=== PATIENT | male | born 2005 | race Two or more races ===

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

== ENCOUNTER 2023-05-21 18:43 | Emergency (ER) | payer MEDICAID, SELFPAY ==
[2023-05-21 19:01] VITALS: BP 145/93; PULSE 94; RESP 16; TEMP 36.8; O2SAT 98; BMI 38.4
--- NOTE | 2023-05-21 19:04 | ED_ITS ---
HPI - Wound/Laceration General Chief Complaint: Wound/Laceration Stated Complaint: cut left hand Time Seen by Provider: 05/21/23 19:56 Source: patient Mode of arrival: ambulatory Limitations: no limitations History of Present Illness HPI narrative: 17-year-old male [id number] here with complaints of laceration to the left hand which occurred while using work night. Patient reports he was trying to cut a zip tie when his hand slipped causing a laceration to the left hand. He tells me his tetanus shot is up-to-date. He denies any associated weakness, numbness or tingling of the extremity. Related Data Previous Rx's Medication Instructions Recorded diphenhydramine HCl 25 mg capsule 25 mg PO Q8H 5 days #15 caps 03/15/22 (Benadryl) famotidine 20 mg tablet (Pepcid) 20 mg PO BID 5 days #10 tabs 03/15/22 prednisone 20 mg tablet 40 mg (2 x 20 mg) PO DAILY #10 tabs 03/15/22 Allergies Allergy/AdvReac Type Severity Reaction Status Date / Time aspirin [ASPIRIN] Allergy Unknown THROMBOCYTO Verified 05/21/23 19:04 PENIA Review of Systems 2 Review of Systems: Yes all other systems are reviewed and are negative Constitutional: Constitutional: Reports no additional constitutional complaints, Denies body ache(s), Denies chills, Denies fever(s), Denies headache(s) and Denies weakness Eyes: Eyes: Reports no additional eye complaints and Denies change in vision ENT: Reports system reviewed and no additional complaints, except as documented, Denies dizziness, Denies headache(s), Denies nasal congestion, Denies nasal discharge and Denies neck pain Cardiovascular: Cardiovascular: Reports no additional cardiovascular complaints, Denies chest pain, Denies leg edema and Denies dyspnea Respiratory: Respiratory: Reports no additional respiratory complaints, Denies cough and Denies dyspnea Gastrointestinal: Gastrointestinal: Reports no additional gastrointestinal complaints, Denies abdominal pain, Denies diarrhea, Denies nausea and Denies vomiting Genitourinary: Genitourinary: Denies urinary incontinence Musculoskeletal: Musculoskeletal: Reports no additional musculoskeletal complaints, Denies back pain, Denies arthralgias, Denies joint swelling, Denies neck pain, Denies numbness and Denies tingling Integumentary/Breasts: Skin/Breast: Reports system reviewed and no additional complaints, except as docu, Denies rash and Reports wounds Neurologic: Reports system reviewed and no additional complaints, except as documented, Denies Abnormal speech present, Denies dizziness, Denies headache(s), Denies numbness, Denies tingling and Denies weakness PMFSH Past Medical History Attestation statement: The following information was validated with the patient. Source: old records reviewed and nursing notes reviewed Medical History Asthma Thrombocytopenia Social History Alcohol intake: never Patient Tobacco Use Status: Never used Tobacco Smoked in Last 30 Days: No Physical Exam 2 Vital Signs: Vital Signs: Last Vital Signs Temp 98.3 F 05/21/23 19:01 Pulse 94 05/21/23 19:01 Resp 16 05/21/23 19:01 BP 145/93 H 05/21/23 19:01 Pulse Ox 98 05/21/23 19:01 O2 Del Method Room Air 05/21/23 19:01 BMI result Body Mass Index 38.4 Const: General: cooperative, healthy appearing, comfortable and no acute distress Orientation/consciousness: patient oriented x3 Limitations: no limitations HEENT: Head: Yes normal to inspection Ears: hearing grossly normal bilaterally General nose exam: Normal external nose present Face and sinus: Yes normal facial exam Mouth: Normal oral and palatal mucosa present Throat: Yes posterior oropharynx normal Eyes: General: appearance normal, both eyes and all related structures P upils: Equal, round and reactive pupils present Neck: Neck: Yes normal visual inspection Chest: Chest palpation & inspection: normal inspection of the chest Resp: Effort & Inspection: normal respiratory effort Auscultation: clear to auscultation bilaterally Cardio: Rate: regular rate Rhythm: regular rhythm Peripheral pulses: P eripheral pulses 2+ throughout GI: Inspection: Yes normal to inspection Palpation (GI): Soft to palpation and nontender Auscultation: normal bowel sounds Back/Spine/Pelvis: Thoracic/Lumbar Spine: thoracic and lumbar spine normal to inspection Skin: General skin exam: no rashes or lesions noted Neuro: General: patient oriented x3, no focal motor deficits and normal sensation to monofilament Cranial nerves: Yes Equal, round and reactive pupils present Cognition (Neuro): normal cognition Speech: No Abnormal speech present Gait exam (Neuro): Normal gait present Motor exam (neuro): 5/5 motor strength present throughout Extrem: General: Yes normal to inspection Hand/finger images: 1. 2cm laceration-Bleeding controlled. Normal CMS Course Course Course Narrative: This is a rapid medical exam. deferred additional HPI, ROS, PE to primary provider. 17 yo male with history of thrombocytopenia (last count here 145k), right hand dominant here with laceration to left hand from knife. ?sutures needed. FROM of hand. Tetanus UTD VSS Medical Decision Making Medical Decision Making MDM Narrative: 17-year-old male [id number] here with complaints of laceration to the left hand which occurred while using work night. Patient reports he was trying to cut a zip tie when his hand slipped causing a laceration to the left hand. He tells me his tetanus shot is up-to-date. He denies any associated weakness, numbness or tingling of the extremity. Over the left hand there is a laceration present which is approximately 2 cm. Bleeding is controlled. CMS is normal around the affected extremity. See procedure note for wound closure. Differential Diagnosis Differential Diagnoses: The differential diagnosis associated with the presentation includes Laceration Low concern for tendon injury/bony abnormality/Fb with full range of motion Tests considered The following testing was considered but not selected: No need for x-ray with no concern for FB, bony abnormality Prescription Management I considered prescription management with: Pain Medication Procedures Laceration Laceration 1: Site: hand Side (If applicable): left Size (cm): 2 Description: linear Depth: simple, single layer Pre-repair: wound explored and irrigated extensively (NS/betadine) Skin layer closed with: other (skin glue/steri strips) Discharge Plan Discharge Clinical Impression: Laceration Patient Disposition: Home, Self-Care Instructions: Laceration (ED) Additional Instructions: Leave the steri strips on for 5 days. If they fall off before then its okay. Try to keep the wound clean, covered and dry Prescriptions: No Action prednisone 20 mg tablet 40 mg PO DAILY Qty: 10 0RF famotidine [Pepcid] 20 mg tablet 20 mg PO BID 5 Days Qty: 10 0RF diphenhydramine HCl [Benadryl] 25 mg capsule 25 mg PO Q8H 5 Days Qty: 15 0RF Referrals: Cristela Garcia DO [Primary Care Provider] - 1 week
--- NOTE | 2023-05-21 19:47 | PC.NURSE ---
wound soaked in sterile water and betadine
== END 2023-05-21 20:14 | disposition home or self-care (01) ==
LOC: HO.ED 20:10
PROVIDERS: Emergency Provider Emergency Medicine; PCP Pediatrics
DX: S61.012A Laceration without foreign body of left thumb without damage to nail, initial encounter (principal); W26.0XXA Contact with knife, initial encounter; Y93.89 Activity, other specified; Y92.9 Unspecified place or not applicable; Y99.0 Civilian activity done for income or pay; J45.909 Unspecified asthma, uncomplicated
CPT/HCPCS: 99283

== ENCOUNTER 2023-08-14 13:31 | Emergency (ER) | payer MEDICAID, SELFPAY | END 2023-08-14 14:49 | disposition left against medical advice (07) | PROVIDERS: Emergency Provider Emergency Medicine | DX: F41.9 Anxiety disorder, unspecified (principal) ==

== ENCOUNTER 2023-08-14 14:34 | Emergency (ER) | payer SELFPAY ==
[2023-08-14 14:51] VITALS: BP 144/86; BP 155/70; PULSE 79; PULSE 91; RESP 18; TEMP 36.7; O2SAT 100; O2SAT 98; BMI 40.7
[2023-08-14 16:58] LABS: Appearance Urine Clear; Color Urine Yellow; Glucose Urine UA Negative (Negative); Leukocyte Esterase Urine Negative (Negative); Nitrite Urine Negative (Negative); PH 6.5 (5.0-9.0); Specific Gravity - Urine 1.025 (1.005-1.025); Urine Blood Negative (Negative); Urine Ketones Negative (Negative); Urine Protein Trace mg/dL (Neg-Trace)
[2023-08-14 17:06] LABS: Amphetamine Screen Urine Not Detected (Not Detect); Barbiturates, Urine Not Detected (Not Detect); Benzodiazepines Screen Urine Not Detected (Not Detect); Cannabinoid Screen Urine Not Detected (Not Detect); Cocaine Screen Urine Not Detected (Not Detect); Fentanyl, urine Not Detected (Not Detect); Opiate Screen Urine Not Detected (Not Detect); Phencyclidine Screen Urine Not Detected (Not Detect)
--- NOTE | 2023-08-14 17:37 | ED_ITS ---
HPI - Psych General Chief Complaint: Psychiatric Symptoms Stated Complaint: SECTION 12 Time Seen by Provider: 08/14/23 14:48 Source: patient Mode of arrival: EMS Limitations: no limitations History of Present Illness HPI Narrative: patient comes to the emergency room by ambulance. Earlier today, patient and his aunt, both of them came to the ED. seems that earlier today they are home /apartment got condemned. patient brought his aunt to the emergency room. What he was here, patient checked in for anxiety. However, patient needed to make arrangements for them to stay at someone else's house. Patient states that he needed to take care of his pets as well. Patient left his aunt in the emergency room waiting to be seen while he decided to make living arrangements. Patient states that he has not SI or HI. When patient arrived to his home to get close for the next few days, the police was waiting for him. Seems that someone from the hospital called the police stating that the patient eloped. They brought him to the emergency room. Patient denies SI or HI. Related Data Previous Rx's Medication Instructions Recorded diphenhydramine HCl 25 mg capsule 25 mg PO Q8H 5 days #15 caps 03/15/22 (Benadryl) famotidine 20 mg tablet (Pepcid) 20 mg PO BID 5 days #10 tabs 03/15/22 prednisone 20 mg tablet 40 mg (2 x 20 mg) PO DAILY #10 tabs 03/15/22 Allergies Allergy/AdvReac Type Severity Reaction Status Date / Time aspirin [ASPIRIN] Allergy Unknown THROMBOCYTO Verified 05/21/23 19:04 PENIA Review of Systems Review of Systems: Constitutional : No Weight loss, No Fever, No Chills, No Night Sweats, No Fatigue, No Malaise ENT/Mouth : No Hearing loss, No Ear Pain, No Nasal Congestion, No Sinus Pain, No Hoarseness, No sore throat, No Rhinorrhea, No Swallowing Difficulty Eyes: No Eye Pain, No Swelling, No Redness, No Foreign Body, No Discharge, No Vision Changes Cardiovascular : No Chest Pain, No SOB, No Dyspnea on Exertion, No Orthopnea, No Edema, No Palpitations Respiratory : No Cough, No Sputum, No Wheezing, No Smoke Exposure, No Dyspnea Gastrointestinal : No Nausea, No Vomiting, No Diarrhea, No Constipation, No abdominal Pain, No Hematochezia, No Melena Genitourinary : no irregular bleeding, No Dysuria, No Urinary Frequency, No Hematuria, No Urinary Incontinence, No Urgency, No Flank Pain, No Urinary Flow Changes, No Hesitancy Musculoskeletal : No joint pain, No Myalgias, No Joint Swelling Skin : No Skin Lesions, No rash Neuro : No Weakness, No Numbness, No Paresthesias, No Loss of Consciousness, No Dizziness, No Headache Psych : Situational anxiety, No Depression, No SI/HI/AH/VH, No Social Issues, Heme/Lymph: No Bruising, No Bleeding,No Lymphadenopathy Endocrine : No Polyuria, No Polydipsia, No Temperature Intolerance PMFSH Past Medical History Medical History Asthma Thrombocytopenia Social History Social History Alcohol intake: never Patient Tobacco Use Status: Never used Tobacco Advance Directives: No Advance Directives Information Provided: No Physical Exam Vital Signs: Vital Signs: Last Vital Signs Temp 98.1 F 08/14/23 14:51 Pulse 79 08/14/23 14:51 Resp 18 08/14/23 14:51 BP 155/70 H 08/14/23 14:51 Pulse Ox 98 08/14/23 14:51 O2 Del Method Room Air 08/14/23 14:51 BMI result Body Mass Index 40.7 Const: Other: Appearance: Alert. Oriented X3. No acute distress. Eyes: Pupils equal, round and reactive to light. ENT: Pharynx normal. Neck: Normal inspection. Neck supple. No lymph nodes noted. No crepitus CVS: Normal heart rate and rhythm. Pulses normal. Normal S1 and S2 Respiratory: No respiratory distress. Breath sounds normal. No Wheezing. No rales Abdomen: Soft and nontender. No rigidity. No distention. Skin: Skin warm and dry. Normal skin color. Normal skin turgor. Extremities: No lower extremity edema. No Lacerations. No Rash Neuro: Oriented X 3. No motor deficit. No sensory deficit. Moving all extremities. No slurred speech. CN 2 through 12 grossly intact Psych: calm, cooperative, normal affect Medical Decision Making Medical Decision Making MDM Narrative: - patient is awake, alert and oriented x3, calm, cooperative - patient states that he is not suicidal or homicidal, patient does not have history of psychiatric illnesses. - When patient arrived, he was Section 12 by police department, stating that the patient was self-harming. Patient states that he was slightly bumping his head against the wall, thinking. Patient Is adamant that he was not hurting himself in any way. Patient states that he is very worried because he does not have a place to leave starting today, and now he has to face his family, and is concerned that they will be very angry at him because he let this happened. - patient has no injuries or wounds that would indicate that he hit his head hard - patient's history is believable. - Patient given the option to wait to be seen by the care team, however patient states that he would prefer to be discharged since he has to take care of his pets and make living arrangements and talk to his family about what happened today. Differential Diagnosis Differential Diagnoses: The differential diagnosis associated with the presentation includes Lab Data Labs: Lab Results 08/14/23 Range/Units 16:38 Urine Color Yellow Urine Appearance Clear Urine pH 6.5 (5.0-9.0) Ur Specific [place] 1.025 (1.005-1.025) Urine Protein Trace (Neg-Trace) mg/dL Urine Glucose (UA) Negative (Negative) mg/dL Urine Ketones Negative (Negative) mg/dL Urine Blood Negative (Negative) Urine Nitrite Negative (Negative) Ur Leukocyte Esterase Negative (Negative) Urine Opiates Screen Not Detected (Not Detect) Urine Fentanyl Screen Not Detected (Not Detect) Ur Barbiturates Screen Not Detected (Not Detect) Ur Phencyclidine Scrn Not Detected (Not Detect) Ur Amphetamines Screen Not Detected (Not Detect) U Benzodiazepines Scrn Not Detected (Not Detect) Urine Cocaine Screen Not Detected (Not Detect) U Marijuana (THC) Screen Not Detected (Not Detect) Discharge Plan Discharge Clinical Impression: Acute anxiety Patient Disposition: Home, Self-Care Instructions: Anxiety (ED) Additional Instructions: Please follow-up with your primary care physician tomorrow. If you have any w orsening or new symptoms, please return to the emergency room or call 911 Prescriptions: No Action prednisone 20 mg tablet 40 mg PO DAILY Qty: 10 0RF famotidine [Pepcid] 20 mg tablet 20 mg PO BID 5 Days Qty: 10 0RF diphenhydramine HCl [Benadryl] 25 mg capsule 25 mg PO Q8H 5 Days Qty: 15 0RF Interventions: [place]-Suicide Risk Severity Scale Last Done: 08/14/23 15:02
== END 2023-08-14 17:44 | disposition home or self-care (01) ==
PROVIDERS: Emergency Provider Emergency Medicine
DX: F41.9 Anxiety disorder, unspecified (principal); Z72.89 Other problems related to lifestyle; Z59.811 Housing instability, housed, with risk of homelessness; Z79.899 Other long term (current) drug therapy
CPT/HCPCS: 80307; 81003; 99284

== ENCOUNTER 2025-05-24 13:43 | Outpatient (REF) | payer SELFPAY ==
--- NOTE | ~2025-05-24 | XR_ITS ---
EXAMINATION: XR CHEST CLINICAL INFORMATION: persistent cough COMPARISON: None available. TECHNIQUE: 2 views of the chest were obtained. FINDINGS: No significant abnormality is noted involving the heart, lungs, mediastinum, bony thorax or soft tissues. XR/XR chest 2V IMPRESSION: Unremarkable examination. Electronically signed by: Carley Us MD 05/24/2025 02:01 PM [facility]
--- OUTSIDE RECORDS SUMMARY | 2025-05-24 13:00 | XMS_ITS | Encounter Summary ---
Author Organization [employer] Address [address] [place] [address] [address] [place] [address] Care Team Providers Care Gear Keeper Name Role Phone Jami Barton [facility] Primary Care Provider [phone] Reason for Visit * Reason Comments Cough Shortness of Breath Encounter Details Date Type Department Care Team ([facility] st Contact Info) Description 05/24/2025 1:00 PM EST Office Visit [facility] [address] [place] [address] DeeD ee Encarnacion MD [address] [place] [address] Exacerbation of asthma, unspecified asthma severity, unspecified whether persistent (Primary Dx); Persistent cough Social History Tobacco Use Types Packs/Day Years Used Date Smoking Tobacco: Never Smokeless Tobacco: Never Tobacco Cessation:Counseling Given: Not Answered Alcohol Use Standard Drinks/Week Comments Never 0 (1 standard drink = 0.6 oz pur e alcohol) Depression Answer Date Recorded Patient Health Questionnaire-9 Score 17 03/19/2024 Patient Health Questionnaire-9 Score 17 03/19/2024 Last PHQ-9: Questionnaire Data Not on file 0 03/19/2024 Housing Stability Answer Date Recorded What is your housing situation today? I have yaneth dinero 03/19/[address] you li ve. Do you have problems with any of the following? None of the above 03/19/2024 Food Insecurity Answer Date Recorded Within the past 12 months, y ou worried that your food would run out before you got money to buy more: Never True 03/19/2024 Within the past 12 months,th e food you bought just didn't last and you didn't have enough money to get more: Never True Transportation Answer Date Recorded In the past 12 months, has l ack of transportation kept you from medical appts, meetings, work or from getting things needed for daily living? No 03/11/2024 Utilities Answer Date Recorded In the past 12 months, has t he electric, gas, oil or water company threatened to shut off services in your home? No 03/19/2024 Depression Answer Date Recorded Patient Health Questionnaire-2 Score 4 03/19/2024 Internet Access Answer Date Recorded Internet Access Q1 Yes 03/11/2024 Internet Access Q2 Not on file 03/11/2024 Sex and Gender Information Value Date Recorded Sex Assigned at Male 04/29/2022 10:22 AM EDT Legal Sex Male 10:22 AM EDT Gender Identity Male 04/29/2022 10:22 AM EDT Sexual Orientation Straight 04/29/2022 10 :22 AM EDT documented as of this encounter Last Filed Vital Signs Vital Sign Reading Time Taken Comments Blood Pressure 138/86 05/24/2025 1:23 PM EST Pulse 90 05/24/2025 1:23 PM EST Temperature 36.6 C (97.8 F) 05/24/2025 1:23 PM EST Respiratory Rate 20 05/24/2025 1:23 PM EST Oxygen Saturation 97% 05/24/2025 1:23 PM EST Inhaled Oxygen Concentration - - Weight 123 kg (270 lb 3.2 oz) 05/24/2025 1:23 PM EST Height 180.3 cm (5' 11 ) 05/24/2025 1:23 PM EST Body Mass Index 37.69 05/24/2025 1:23 PM EST documented in this encounter Progress Notes * Dee Dee Hou MD - 05/24/2025 1:00 PM EST SUBJECTIVE: Byron Chatman is a 19 y.o. year old male who presents for acute visit . Acute Concerns: Patient waas seen here in [facility] about a week ago he was diagnose with asthma exacerbation and it was prescribed albuterol and Symbicort, he reports his symptoms got worse, reports SOB, chest tightness,cough with clear sputum and wheezing at night, he has not being able to sleep, reports spells of cough Social History Social History Narrative Not on file Problem List[1] ADHD Major depression Anxiety Mild persistent asthma Allergic rhinitis Body mass index, pediatric, greater than or equal to 95th percentile for age Asthma exacerbation Persistent cough Family History[2] Review of Systems Constitutional: Positive for diaphoresis and fatigue. HENT: Positive for congestion and sore throat. Negative for dental problem, drooling, ear discharge, ear pain, facial swelling, hearing loss, mouth sores, nosebleeds, postnasal drip, rhinorrhea, sinus pressure, sinus pain, sneezing, tinnitus, trouble swallowing and voice change. Respiratory: Positive for cough, chest tightness, shortness of breath and wheezing. Negative for apnea, choking and stridor. Cardiovascular: Negative. OBJECTIVE: Vitals: 05/24/25 1323 BP: 138/86 BP Location: Right arm Patient Position: Sitting BP Cuff Size: Large adult Pulse: 90 Resp: 20 Temp: 97.8 ??F (36.6 ??C) TempSrc: Oral SpO2: 97% Weight: 270 lb 3.2 oz (123 kg) Height: 5' 11 (1.803 m) Physical Exam Constitutional: Appearance: He is diaphoretic. Cardiovascular: Rate and Rhythm: Normal rate and regular rhythm. Pulmonary: Effort: Pulmonary effort is normal. Breath sounds: Wheezing present. Musculoskeletal: Right lower leg: No edema. Left lower leg: No edema. Neurological: Mental Status: He is alert. Follow Up: No follow-ups on file. Medications Ordered Prior to Encounter[3] Problem List Items Addressed This Visit Asthma exacerbation - Primary Patient educated to avoid triggers I advise to c/w albuterol inhaler 2 puff every 4-6hrs I prescribed prednisone 60mg daily for 5 days If symptoms persist or worse it was advise to go to emergency room Chest x-ray ordered today Relevant Medications predniSONE (Deltasone) 20 MG tablet Persistent cough Relevant Medications predniSONE (Deltasone) 20 MG tablet Other Relevant Orders Influenza A (ID NOW Rapid Molecular) (Completed) Influenza B (ID NOW Rapid Molecular) (Completed) POCT Rapid COVID Ag (Completed) XR Chest 2 Views (Completed) [1] Patient Active Problem List Diagnosis ADHD Major depression Anxiety Mild persistent asthma Allergic rhinitis Body mass index, pediatric, greater than or equal to 95th percentile for age Asthma exacerbation Persistent cough [2] Family History Problem Relation Name Age of Onset HIV Mother [3] Current Outpatient Medications on File Prior to Visit Medication Sig Dispense Refill budesonide-formoterol (Symbicort) 80-4.5 MCG/ACT inhaler Take 2 puffs every 4-6 hours as needed forSOB/wheezing. Rinse mouth with water after use to reduce aftertaste and incidence of candidiasis. Do not swallow. 1 each 2 escitalopram (Lexapro) 20 MG tablet Take 1 tablet (20 mg) by mouth Once per day. 30 tablet 2 fluticasone (Flonase) 50 MCG/ACT nasal spray Inhale 2 sprays per nostril once daily. Shake gently. Before first use, prime pump. After use, clean tip and replace cap. 48 g 1 ibuprofen 600 MG tablet Take 1 tablet (600 mg) by mouth every 8 (eight) hours if needed for mild pain. 30 tablet 1 loratadine (Claritin) 10 MG tablet TAKE 1 TABLET BY MOUTH EVERY DAY 90 tablet 1 melatonin 5 MG tablet Take 1 tablet (5 mg) by mouth if needed at bedtime (difficulty sleeping). 30 tablet 2 No current facility-administered medications on file prior to visit. documented in this encounter Miscellaneous Notes * Assessment & Plan Note - Dee Dee Hou MD - 05/24/2025 2:50 PM EST Associated Problem(s): Asthma exacerbation Patient educated to avoid triggers I advise to c/w albuterol inhaler 2 puff every 4-6hrs I prescribed prednisone 60mg daily for 5 days If symptoms persist or worse it was advise to go to emergency room Chest x-ray ordered today documented in this encounter Plan of Treatment Upcoming Encounters Date Type Department Care Team (Late st Contact Info) Description 07/07/2025 3:30 PM EST Office Visit [facility] [address] [place], [place] [phone] Carol Gaspar, OD [address] [facility], [place] [phone] documented as of this encounter Procedures Procedure Name Priority Date/Time Associated Diagnosis Comments XR CHEST 2 VIEWS Routine 05/24/2025 2:04 PM EST Persistent cough POCT INFLUENZA B (ID NOW RAPID MOLECULAR) Routine 05/24/2025 1:52 PM EST Persistent cough POCT INFLUENZA A (ID NOW RAPID MOLECULAR) Routine 05/24/2025 1:52 PM EST Persistent cough POCT RAPID COVID ANTIGEN Routine 05/24/2025 1:52 PM EST Persistent cough documented in this encounter Results * XR Chest 2 Views (05/24/2025 2:04 PM EST) Anatomical Region Laterality Modality Chest Radiographic Abbey ging 05/24/2025 2:04 PM EST Narrative 05/24/2025 2:04 PM EST [address] [address] XRay Report Signed Patient: Byron Valdez MR#: [id number] : 2005 Acct:[id number] Age/Sex: 19 / M ADM Date: 05/24/25 Loc: HO.HHCX Attending Dr: Dee Dee Hou MD Ordering Physician: Dee Dee Encarnacion MD Date of Service: 05/24/25 Procedure(s): XR chest 2V Accession Number(s): [id number] cc: Dee Dee Encarnacion MD Reason for Exam: persistent cough EXAMINATION: XR CHEST CLINICAL INFORMATION: persistent cough COMPARISON: None available. TECHNIQUE: 2 views of the chest were obtained. FINDINGS: No significant abnormality is noted involving the heart, lungs, mediastinum, bony thorax or soft tissues. XR/XR chest 2V IMPRESSION: Unremarkable examination. Electronically signed by: Carley Us MD 05/24/2025 02:01 PM EST RP Dictated By: Carley Us MD Signed By: <Electronically signed by Carley Us MD in OV> 05/24/25 1401 DD/ 1404 TD/TT: 05/24/25 1356 Porcelain Enamel Repairer: [place] Procedure Note Donotuseinterpreter, Image - 05/24/2025 [facility] [address] [place] [address] XRay Report Signed Patient: Byron ValdezMR#: [id number] : 2005Acct:[id number] Age/Sex: 19 / MADM Date: 05/24/25 Loc: HO.HHCX Attending Dr: Dee Dee Hou MD Ordering Physician: Dee Dee Encarnacion MD Date of Service: 05/24/25 Procedure(s): XR chest 2V Accession Number(s): [id number] cc: Dee Dee Encarnacion MD Reason for Exam: persistent cough EXAMINATION: XR CHEST CLINICAL INFORMATION: persistent cough COMPARISON: None available. TECHNIQUE: 2 views of the chest were obtained. FINDINGS: No significant abnormality is noted involving the heart, lungs, mediastinum, bony thorax or soft tissues. XR/XR chest 2V IMPRESSION: Unremarkable examination. Electronically signed by: Carley Us MD 05/24/2025 02:01 PM EST Dictated By: Carley Us MD Signed By: <Electronically signed by Carley Us MD in OV> 05/24/25 1401 DD/ 1404 TD/TT: 05/24/25 1356 Porcelain Enamel Repairer: [place] us Dee Dee Hou MD IMG XR PROCEDURES Fin al Result * POCT Rapid COVID Ag (05/24/2025 1:52 PM EST) Rapid COVID Ag Negative Swab 05/24/2025 1:52 PM EST us Dee Dee Hou MD POINT OF CARE TEST EN TER/EDIT ORDERABLES Final Result * Influenza B (ID NOW Rapid Molecular) (05/24/2025 1:52 PM EST) Influenza B Negative Negative, Indeterminate [facility] Swab 05/24/2025 1:52 PM EST us Dee Dee Hou MD POINT OF CARE TEST EN TER/EDIT ORDERABLES Final Result Performing Organization Address [facility] Co de Phone Number [facility] [address] [place] [phone] * Influenza A (ID NOW Rapid Molecular) (05/24/2025 1:52 PM EST) Influenza A Negative Negative, Indeterminate [facility] Swab 05/24/2025 1:52 PM EST Dee Dee Hou MD POINT OF CARE TEST EN TER/EDIT ORDERABLES Final Result Performing Organization Address [facility] de Phone Number [facility] [address] [place] [phone] documented in this encounter Visit Diagnoses Diagnosis Exacerbation of asthma, unspecified asthma severity, unspecified whether persistent- Primary Persistent cough documented in this encounter Additional Health Concerns Assessment Noted Time PHQ-9 Depression Total Score: 17 03/19/ 024 1:43 PM EDT documented as of this encounter Care Teams Gear Keeper Relationship Specialty Start Date End Date Jami Barton FNP [address] [place] [phone] PCP - General Family Medicine 02/10/24 documented as of this encounter
--- OUTSIDE RECORDS SUMMARY | 2025-05-24 17:33 | XMS_ITS | Encounter Summary ---
Author Organization [employer] Address [address] [place] [address] [address] [place] [address] Care Team Providers Care Lease Analyst Name Role Phone Oralia [facility] Primary Care Provider [phone] Reason for Visit * Reason Onset Date Comments Results 05/24/2025 Encounter Details Date Type Department Care Team ([facility] Contact Info) Description 05/24/2025 Results Follow-Up [facility] [address] [place] [address] Dee Dee Encarnacion MD [address] [place] [address] XR Chest 2 Views Social History Tobacco Use Types Packs/Day Years Used Date Smoking Tobacco: Never Smokeless Tobacco: Never Alcohol Use Standard Drinks/Week Comments Never 0 [...] AM EDT documented as of this encounter Miscellaneous Notes * Telephone Encounter - Sea Lynch - 05/24/2025 3:13 PM EST Tc from pt returning call regarding message prior. * Telephone Encounter - Selina Mcdaniels RN - 05/24/2025 3:01 PM EST Patient returned and he was notified of normal xray results TC placed to pt mobile number to discuss the message below message was left for a call back, TC placed to home number which is not in service. Pt to follow up prn ----- Message from Dee Dee Hou MD sent at 05/24/2025 2:58 PM EST ----- Please let patient know his XRAY is normal ----- Message ----- From: Interface, Ris Results In Sent: 05/24/2025 2:04 PM EST To: Dee Dee Hou MD documented in this encounter Plan of Treatment Upcoming Encounters Date Type Department Care Team (Late st Contact Info) Description 07/07/2025 3:30 PM EST Office Visit [facility] [address] [place] [address] Carol Gaspar, OD [address] [place] [address] documented as of this encounter Visit Diagnoses Not on filedocumented in this encounter Additional Health Concerns Assessment Noted Time PHQ-9 Depression Total Score: 17 024 1:43 PM EDT documented as of this encounter Care Teams Lease Analyst Relationship Specialty Start Date End Date Jami Barton FNP [address] [place] [address] PCP - General Family Medicine 02/10/24 documented as of this encounter
--- OUTSIDE RECORDS SUMMARY | 2025-05-24 17:33 | XMS_ITS | Encounter Summary ---
Author Organization [employer] Address [address] [place] [address] 7t [place] [address] Care Team Providers Care Cigar Brander Name Role Phone [facility] Primary Care Provider [phone] Reason for Visit * Reason Onset Date Comments Nurse Triage 05/24/2025 Encounter Details Date Type Department Care Team ([facility] st Contact Info) Description 05/24/[address] [facility] [address] [place] [address] [facility] [address] [place] [address] Nurse Triage Social History Tobacco Use Types Packs/Day Years [...] encounter Miscellaneous Notes * Telephone Encounter - Shala Vaughn RN - 05/24/2025 9:50 AM EST Tc to pt via BLS ( quality analyst/technical writer unable to get triage name and id due to call disconnected). Mom answered and gave phone to pt. Pt sounded groggy and shortness of breath heard throughout the call after short phrases. Pt reports shortness of breath at rest and chest tightness. Pt reports they took all three of their medications this morning around 6 am because they woke up feeling shortness of breath. Ptreports the medication helped in regards to the chest tightness but they still experience shortnessof breath after. Pt denies being sick recently but states they have been experiencing a dry cough for weeks and a runny nose. Pt reports this has been an ongoing problem for them so they have been alternating between, been drinking a lot of water but the dry cough is still present. Pt took another dose of their Symbicort after 9 am and stated they no longer have chest tightness. Pt refused the need for an ambulance due to fear of insurance will not cover. Customer Manager strongly advised pt they have the right to refuse if the ambulance shows up to their home but this is due to safety concerns. Pt began speaking in clear coherent sentences and reported they do not believe their symptoms are that emergent for them to go to the ED. Pt states they could drive and quality analyst/technical writer strongly advised pt to not drive and to ask if someone can bring them to be evaluated.Pt reports their neighbor who is close to them can bring them. Customer Manager confirmed with the neighbor if they can bring pt to the ED and they agreed. Pt advised to call our office back for any further questions and when they leave the ED. Pt verbalized understanding and agrees with plan. Message sent to red team nurses to call pt to do a status check. Protocol Used: Asthma Attack (Adult) Protocol-Based Disposition: Go to ED Now Positive Triage Questions: * Moderate asthma attack (e.g., SOB at rest, speaks in phrases, audible wheezes) AND doesn't have neb or inhaler available * Chest pain (Exception: Mild chest tightness that feels the same as prior asthma attacks.) * Patient sounds very sick or weak to the triager * All higher-acuity triage questions were negative. Care Advice Discussed: * Asthma Attack - Symptoms * Reasons To Call Back - An asthma attack is not better after 2 or 3 quick-relief treatments (such as albuterol by inhaleror nebulizer) 20 minutes apart. - Quick-relief asthma medicine (such as albuterol by inhaler or nebulizer) is needed more often than every 4 hours - Mild asthma symptoms not better after 24 hours - Mild wheezing or other asthma symptoms come and go for more than 3 days - You become worse Protocol Used: Breathing Difficulty (Adult) Protocol-Based Disposition: Go to ED Now Positive Triage Question: * Moderate difficulty breathing (e.g., speaks in phrases, SOB even at rest, pulse 100-120) of new-onset or worse than normal * All higher-acuity triage questions were negative. Care Advice Discussed: * Reasons To Call Back - Severe difficulty breathing occurs - Fever more than 100.4 F (38.0 C) - You become worse * Telephone Encounter - Akosua Dickerson - 05/24/2025 8:34 AM EST Tc from Mom stating pot has been coughing for 2 weeks and having difficulty breathing. Please contact pt at [phone] documented in this encounter Plan of Treatment Upcoming Encounters Date Type Department Care Team (Late st Contact Info) Description 07/07/2025 3:30 PM EST Office Visit [facility] [address] [place], [place] [phone] Hubert, Carol, OD [address] [place] [address] documented as of this encounter Visit Diagnoses Not on filedocumented in this encounter Additional Health Concerns Assessment Noted Time PHQ-9 Depression Total Score: 17 024 1:43 PM EDT documented as of this encounter Care Teams Cigar Brander Relationship Specialty Start Date End Date Jami Barton FNP [address] [place] [address] PCP - General Family Medicine 02/10/24 documented as of this encounter
--- OUTSIDE RECORDS SUMMARY | 2025-05-24 17:33 | XMS_ITS | Encounter Summary ---
Author Organization [employer] Address [address] [place] [address] [address] [place] [address] Care Team Providers Care Cigarette Making Machine Operator Name Role Phone LedaCristela stephenson Primary Care Provider [phone] [facility] Primary Care Provider [phone] Reason for Visit * Reason Comments Med Refill Encounter Details Date Type Department Care Team (Late Contact Info) Description 12/09/2023 Refill [facility] [address] [place] [address] Coby Carbone DO [address] [place] [address] COVID-19 Social History Tobacco Use Types Packs/Day Years Used Date Smoking Tobacco: Never Smokeless Tobacco: Never Alcohol Use Standard Drinks/Week Comments Never 0 (1 standard drink = 0.6 oz pur e alcohol) Sex and Gender Information Value Date Recorded Sex Assigned at Male 04/29/2022 10:22 AM EDT Legal Sex Male 10:22 AM EDT Gender Identity Male 04/29/2022 10:22 AM EDT Sexual Orientation Straight 04/29/2022 10 :22 AM EDT documented as of this encounter Plan of Treatment Upcoming Encounters Date Type Department Care Team (Late Contact Info) Description 07/07/2025 3:30 PM EST Office Visit [facility] [address] [place] [address] Hubert, Carol, OD [address] [place] [address] documented as of this encounter Visit Diagnoses Diagnosis COVID-19 documented in this encounter Care Teams Cigarette Making Machine Operator Relationship Specialty Start Date End Date Cristela Garcia DO [address] [place] [address] PCP - General Pediatrics 10/29/13 02/09/24 [place] FNP [address] [place] [address] PCP - General Family Medicine 02/10/24 documented as of this encounter
--- OUTSIDE RECORDS SUMMARY | 2025-05-24 17:33 | XMS_ITS | Clinical Summary ---
Author Organization [employer] Address [address] [place] [address] [address] [place] [address] Care Team Providers Care Salesperson Books Name Role Phone Oralia [facility] Primary Care Provider [phone] Allergies Active Allergy Reactions Criticality Noted Date Comments Acetaminophen 05/19/2012 Aspirin 05/19/2012 Nsaids 02/03/2012 Medications * This document contains information received from the source organization and may not represent a complete record from that organization. melatonin 5 MG tabletIndicatio ns:Anxiety Take 1 tablet (5 mg) by mouth if needed at bedtime (difficulty sleeping). 30 tablet 2 03/19/20 24 Active escitalopram (Lexapro) 20 MG tabletIndicatio ns:Anxiety Take 1 tablet (20 mg) by mouth Once per day. 30 tablet 2 05/03/20 24 Active ibuprofen 600 MG tabletIndicatio ns:Anxiety Take 1 tablet (600 mg) by mouth every 8 (eight) hours if needed for mild pain. 30 tablet 1 05/03/20 24 Active budesonide-form oterol (Symbicort) 80-4.5 MCG/ACT inhalerIndicati ons:Mild persistent asthma with acute exacerbation Take 2 puffs every 4-6 hours as needed for SOB/wheezing. Rinse mouth with water after use to reduce aftertaste and incidence of candidiasis. Do not swallow. 1 each 2 5 3:17 PM EST 05/13/20 25 Active fluticasone (Flonase) 50 MCG/ACT nasal sprayIndication s:Non-seasonal allergic rhinitis due to other allergic trigger Inhale 2 sprays per nostril once daily. Shake gently. Before first use, prime pump. After use, clean tip and replace cap. 48 g 1 5 3:17 PM EST 05/13/20 25 Active loratadine (Claritin) 10 MG tabletIndicatio ns:Non-seasonal allergic rhinitis due to other allergic trigger TAKE 1 TABLET BY MOUTH EVERY DAY 90 tablet 1 5 3:17 PM EST 05/13/20 25 Active predniSONE (Deltasone) 20 MG tabletIndicatio ns:Exacerbation of asthma, unspecified asthma severity, unspecified whether persistent Take 3 tablets (60 mg) by mouth Once per day for 5 days. 15 tablet 5 2:09 PM EST 05/24/20 25 025 Active fluticasone furoate (Arnuity Ellipta) 100 MCG/ACT inhalerIndicati ons:COVID-19 INHALE 1 PUFF BY MOUTH EVERY MORNING RINSE MOUTH AFTER USING. 1 each 3 12/10/19 24 025 Discontinued(T herapy completed) fluticasone (Flonase) 50 MCG/ACT nasal sprayIndication s:COVID-19 INSTILL 2 SPRAYS IN EACH NOSTRIL ONCE DAILY SHAKE GENTLY 48 g 1 03/03/20 24 025 Discontinued(R eorder (will not trigger notification to Pharmacy)) loratadine (Claritin) 10 MG tabletIndicatio ns:COVID-19 TAKE 1 TABLET BY MOUTH EVERY DAY 90 tablet 1 03/03/20 24 025 Discontinued(R eorder (will not trigger notification to Pharmacy)) Hospital, Clinic, or Other Facility Administered Medication Ordered Dose Route Frequency Start Date End Date Status ipratropium-albutero l (Duo-Neb) 0.5-2.5 mg/3 mL nebulizer solution 3 mLIndications:Mild persistent asthma with acute exacerbation 3 mL NEBULIZATION Once 05/13/2025 05/13/2025 Ended Active Problems Problem Noted Date Diagnosed Date Asthma exacerbation 05/24/2025 Assessment & Plan (05/24/2025 2:50 PM EST): Patient educated to avoid triggers I advise to c/w albuterol inhaler 2 puff every 4-6hrs I prescribed prednisone 60mg daily for 5 days If symptoms persist or worse it was advise to go to emergency room Chest x-ray ordered today Persistent cough 05/24/2025 Body mass index, pediatric, greater than or equal to 95th percentile for age 0701/12/2023 ADHD 07/25/2022 Major depression 07/25/2022 Assessment & Plan (01/16/2023 10:31 AM EDT): Assessment: Patient with depressed mood (low mood, feeling overwhelmed, decreased motivation to focus on self) and anxiety (difficult to control worry, nervousness, difficult to control fear of loosing people). 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 Patient will benefit from folow up BE's. At this time Byron Chatman meets criteria for Visit Diagnoses: Problem List Items Addressed This Visit Other Major depression Anxiety Patient ready to address current needs Yes Strengths- Byron is open and engaged. He is in the pre-contemplation stage of change. PLAN: 1. Follow up with [facility]: Recommended for follow-up: 01/16/2023 2. Patient goal is to engage in FU BE's to explore coping mechanisms 3. Behavioral Recommendations a. PTSD gil- guided deep breathing b. FU BE's Anxiety 07/25/2022 Mild persistent asthma 07/25/2022 Allergic rhinitis 07/25/2022 Encounters Date Type Department Care Team Description 05/24/2025 1:00 PM EST Office Visit [facility] [address] [place] [phone] Dee Dee Encarnacion MD Exacerbation of asthma, unspecified asthma severity, unspecified whether persistent (Primary Dx); Persistent cough 05/24/2025 Results Follow-Up [facility] [address] [place] [address] [phone] Dee Dee Encarnacion MD XR Chest 2 Views 05/24/2025 Travel 05/24/2025 Telephone [facility] [address] [place] [address] [phone] Jami Barton FNP Nurse Triage 05/13/2025 1:20 PM EST Office Visit [facility] [address] [phone] Lakesha Walker ANP Mild persistent asthma with acute exacerbation (Primary Dx); Elevated blood pressure reading without diagnosis of hypertension; Non-seasonal allergic rhinitis due to other allergic trigger 05/13/2025 Telephone [facility] [address] [place] [address] Jami Barton FNP Appointment Request; Care Coordination 05/13/2025 Telephone [facility] [address] [place], [place] [phone] Lakesha Walker ANP In person triage 05/13/2025 Travel 05/13/2025 Telephone [facility] [address] [place] [address] Jami Barton FNP Nurse Triage from Last 3 Months Immunizations Immunization Administration Dates Next Due DTaP 03/08/2008, 6,09/03/2004,06/04,02/06/2004 HPV 9-Valent 12/19/2016,12/22/2015,10/19/2015 Hep A, ped/adol, 2 dose 10/19/2015,11/24/2014 Hep B, Adolescent or Pediatric 06/04/2004,2003,2003 Hib (HbOC) 07/05/2005,06/04/2004,02/06/2004 IPV 03/08/2008, 5,06/04/2004,02/05 Influenza injectable quadriv alent preservative free 07/18/2021,08/30/2019,05/06/2018,07/22,06/09/2015 Influenza, Split (incl. tena fied surface antigen) 04/13/2012 MMR 03/08/2008,12/10/2004 Meningococcal MCV4P [id number]-135 02/21/2021,12/15/19 16 Pfizer Covid-19 Vaccine 12+ 10/09/2021 Pneumococcal Conjugate PCV 7 09/03/2004, 07/05/2004,06/04/2004,03/08 Tdap 10/19/2015 Varicella 03/08/2008,12/10/2004 Family History Medical History Relation Name Comments HIV Mother Relation Name Status Comments Mother Social History Tobacco Use Types Packs/Day Years [...] Orientation Straight 04/29/2022 10 :22 AM EDT Last Filed Vital Signs Vital Sign Reading [...] Mass Index 37.69 05/24/2025 1:23 PM EST Plan of Treatment Upcoming Encounters Date Type Department Care Team (Late st Contact Info) Description 07/07/2025 3:30 PM EST Office Visit [facility] [address] [place] [address] Carol Gaspar, OD [address] [place] [address] Health Maintenance Due Date Last Done Comments Chlamydia and Gonorrhea Screening 2003 HIV Screening 2003 Lipid Panel 2003 Disability Screening 2003 Alcohol/Substance Use Screening 2015 Family Planning (PISQ) 11/28/2018 Meningococcal B Vaccine (1 of 2 - Standard) 2019 Hepatitis C Screening 11/28/2021 Pneumococcal Vaccine: Pediatrics (0 to 5 Years) and At-Risk Patients (6 to 49) Years (1 of 2 - PCV) 11/28/2022 09/03/2004, 07/05/2004, 06/04/2004, Additional history exists Depression Monitoring 09/16/2024 03/19/2024, 024 COVID-19 Vaccine ( season) 2025 10/09/2021, 08/08/2021 Influenza Vaccine (#1) 2025 , 08/30/2019, 05/06/2018, Additional history exists DTaP/Tdap/Td Vaccines (7 - Td or Tdap) 10/18/2025 10/19/2015, 03/08/2008, 07/05/2005, Additional history exists SDOH Screening 11/12/2025 11/12/2024 Tobacco Screening 05/24/2026 05/24/2025 Zoster Vaccines (1 of 2) 11/28/2053 RSV Patients and Patients Aged 60 years or older (1 - 1-dose 75+ series) 11/28/2078 Hepatitis B Vaccines Completed 06/04/2004, 01/03/2004, 2003 HIB Vaccines Completed 07/05/2005, 11/2003, 02/06/2004 IPV Vaccines Completed 03/08/2008, 12/2004, 06/04/2004, Additional history exists Hepatitis A Vaccines Completed 10/19/2015, 11/25/19 15 HPV Vaccines Completed 12/19/2016, 11/29, 10/19/2015 Meningococcal Vaccine Completed 02/21/2021, 016 RSV under 20 months Aged Out No longe r eligible based on patient's age to complete this topic Rotavirus Vaccines Aged Out No longer eligible based on patient's age to complete this topic Procedures Procedure Name Priority Date/Time Associated Diagnosis Comments XR CHEST 2 VIEWS Routine 05/24/2025 2:04 PM EST Persistent cough POCT RAPID COVID ANTIGEN Routine 05/24/2025 1:52 PM EST Persistent cough POCT INFLUENZA B (ID NOW RAPID MOLECULAR) Routine 05/24/2025 1:52 PM EST Persistent cough POCT INFLUENZA A (ID NOW RAPID MOLECULAR) Routine 05/24/2025 1:52 PM EST Persistent cough POCT INFLUENZA B (ID NOW RAPID MOLECULAR) Routine 05/13/2025 1:48 PM EST Mild persistent asthma with acute exacerbation POCT INFLUENZA A (ID NOW RAPID MOLECULAR) Routine 05/13/2025 1:48 PM EST Mild persistent asthma with acute exacerbation POCT RAPID COVID ANTIGEN Routine 05/13/2025 1:43 PM EST Mild persistent asthma with acute exacerbation from Last 3 Months Results * XR Chest 2 Views (05/24/2025 2:04 PM EST) Anatomical Region Laterality Modality Chest Radiographic Abbey ging 05/24/2025 2:04 PM EST Narrative 05/24/2025 2:04 PM EST [address] [address] XRay Report Signed Patient: Byron Valdez MR#: [id number] : 2005 Acct:[id number] Age/Sex: 19 / M ADM Date: 05/24/25 Loc: [facility] Attending Dr: Dee Dee Hou MD Ordering Physician: Dee Dee Encarnacion MD Date of Service: 05/24/25 Procedure(s): XR chest 2V Accession Number(s): [id number] cc: Dee Dee Encarnacion MD Reason for Exam: persistent cough EXAMINATION: XR CHEST CLINICAL INFORMATION: persistent cough COMPARISON: None available. TECHNIQUE: 2 views of the chest were obtained. FINDINGS: No significant abnormality is noted involving the heart, lungs, mediastinum, bony thorax or soft tissues. XR/XR chest 2V IMPRESSION: Unremarkable examination. Electronically signed by: Carley Us MD 05/24/2025 02:01 PM [facility] Dictated By: Carley Us MD Signed By: <Electronically signed by Carley Us MD in OV> 05/24/25 1401 DD/ 1404 TD/TT: 05/24/25 1356 Floor Specialist: [place] Procedure Note Donotuseinterpreter, Image - 05/24/[address] [address] XRay Report Signed Patient: Byron ValdezMR#: [id number] : 2005Acct:[id number] Age/Sex: 19 / MADM Date: 05/24/25 Loc: [facility] Attending Dr: Dee Dee Hou MD Ordering Physician: Dee Dee Encarnacion MD Date of Service: 05/24/25 Procedure(s): XR chest 2V Accession Number(s): [id number] cc: Dee Dee Encarnacion MD Reason for [...] 05/24/25 1401 DD/ 1404 TD/TT: 05/24/25 1356 Floor Specialist: [place] Dee Dee Hou MD IMG XR PROCEDURES Fin al Result * Influenza B (ID NOW Rapid Molecular) (05/24/2025 1:52 PM EST) Only the most recent of2 resultswithin the time period is included. Influenza B Negative Negative, Indeterminate [facility] Swab 05/24/2025 1:52 PM EST Dee Dee Hou MD POINT OF CARE TEST EN TER/EDIT ORDERABLES Final Result Performing Organization Address [facility] Co de Phone Number [facility] [address] [place] [phone] * Influenza A (ID NOW Rapid Molecular) (05/24/2025 1:52 PM EST) Only the most recent of2 resultswithin the time period is included. Influenza A Negative Negative, Indeterminate [facility] Swab 05/24/2025 1:52 PM EST Dee Dee Hou MD POINT OF CARE TEST EN TER/EDIT ORDERABLES Final Result Performing Organization Address [facility] Co de Phone Number [facility] [address] [place] [phone] * POCT Rapid COVID Ag (05/24/2025 1:52 PM EST) Only the most recent of2 resultswithin the time period is included. Rapid COVID Ag Negative Swab 05/24/2025 1:52 PM EST us Dee Dee Hou MD POINT OF CARE TEST EN TER/EDIT ORDERABLES Final Result from Last 3 Months Insurance [facility] C3 Care Teams Salesperson Books Relationship Specialty Start Date End Date Jami Barton FNP [address] [place] [phone] PCP - General Family Medicine 02/10/24
--- OUTSIDE RECORDS SUMMARY | 2025-05-24 17:33 | XMS_ITS | Encounter Summary ---
Author Organization [employer] Address [address] [place] [address] [address] [place] [address] Care Team Providers Care Cardroom Plastic Card Grader Name Role Phone Mosca [facility] Primary Care Provider [phone] Encounter Details Date Type Department Care Team (Latest Contact Info) Description 05/24/2025 Travel Social History Tobacco Use Types Packs/Day Years [...] Description 07/07/2025 3:30 PM EST Office Visit [facility] [address] [place] [address] Carol aGspar, OD [address] [place] [address] documented as of this encounter Visit Diagnoses Not on filedocumented in this encounter Additional Health Concerns Assessment Noted Time PHQ-9 Depression Total Score: 17 024 1:43 PM EDT documented as of this encounter Care Teams Cardroom Plastic Card Grader Relationship Specialty Start Date End Date Jami Barton FNP [address] [place] [address] PCP - General Family Medicine 02/10/24 documented as of this encounter
== END 2025-05-24 13:44 | disposition home or self-care (01) ==
LOC: HO.HHCX 13:43
PROVIDERS: Visit Provider Internal Medicine
DX: R05.3 Chronic cough (principal)
CPT/HCPCS: 71046

== ENCOUNTER → 2025-05-24 13:44 | Outpatient (BNV) | payer MEDICAID, SELFPAY | PROVIDERS: Visit Provider Radiology Diagnostic Radiology | DX: R05.8 Other specified cough (principal) | CPT/HCPCS: 71046 ==